=== PATIENT | female | born 1950 | race Caucasian/White ===

== ENCOUNTER 2023-08-28 09:57 | Day surgery (SDC) | payer OTHER ==
[2023-08-28] MEDS: Denosumab 60 MG/ML SQ SCH (10:55)
[2023-08-28 11:14] VITALS: BP 115/57; TEMP 98
== END 2023-08-28 11:34 | disposition home or self-care (01) ==
LOC: ONC/OP 09:57
PROVIDERS: ATTEND Internal Medicine
DX: M81.0 Age-related osteoporosis without current pathological fracture (principal); Z88.2 Allergy status to sulfonamides
CPT/HCPCS: 96372; J0897

== ENCOUNTER 2024-03-01 09:55 | Day surgery (SDC) | payer OTHER ==
[2024-03-01] MEDS: Denosumab 60 MG/ML SQ SCH (10:39)
[2024-03-01 10:52] VITALS: BP 118/55; TEMP 97.6
== END 2024-03-01 10:46 | disposition home or self-care (01) ==
LOC: ONC/OP 09:55
PROVIDERS: ATTEND Internal Medicine
DX: M81.0 Age-related osteoporosis without current pathological fracture (principal)
CPT/HCPCS: 96372; J0897

== ENCOUNTER 2024-12-09 10:51 | Outpatient (CLI) | payer OTHER | END 2024-12-09 10:52 | disposition home or self-care (01) | LOC: BICMAMMO 10:51 | PROVIDERS: ATTEND Internal Medicine | DX: M81.0 Age-related osteoporosis without current pathological fracture (principal) | CPT/HCPCS: 77080 ==